=== PATIENT | female | born 1930 | race Caucasian/White ===

== ENCOUNTER 2018-07-22 21:40 | Observation (INO) | payer MEDICARE, OTHER ==
[2018-07-22 21:46] VITALS: TEMP 97.9
[2018-07-22] MEDS ORDERED: Iodixanol 320 MG/ML 100 ML BOTTLE IV ONE (22:11)
[2018-07-22] MEDS ORDERED: Sodium Chloride 0.9% 1,000 ML IV SCH (22:15)
[2018-07-22 22:19] LABS: BASO # 0.1 K/uL (0.0-0.2); BASO % 0.5 % (0.0-2.0); EOS # 0.4 K/uL (0.0-0.7); EOS % 4.1 % (0.0-4.0); HEMOGLOBIN 12.9 g/dL (11.0-16.0); LYMPH % 20.6 % (20.0-40.0); MEAN CORPUSCULAR HGB CONC 31.2 g/dL (33.0-37.0); MONO # 1.1 K/uL (0.0-0.8); MONO % 11.1 % (0.0-10.0); NEUT # 6.1 K/uL (1.8-7.0); NEUT % 63.7 % (50.0-75.0); NRBC % 0.2 % (0.0-2.0); RBC 6.45 Mil/uL (3.80-5.20); RED CELL DISTRIBUTION WIDTH 17.6 % (11.5-14.5); WHITE BLOOD COUNT 9.6 K/uL (4.8-10.8)
[2018-07-22 22:20] LABS: MEAN CELL VOLUME 63.9 fL (81.0-99.0)
[2018-07-22 22:27] LABS: INR 0.9; PROTHROMBIN TIME 10.3 SECONDS (9.7-12.2)
[2018-07-22 22:31] LABS: ALB/GLOB RATIO 1.2 (1.0-2.1); ALBUMIN 4.7 g/dL (3.5-5.0); ALT/SGPT 40 U/L (9-52); AST/SGOT 44 U/L (14-36); BLOOD UREA NITROGEN 19 mg/dL (7-17); CALCIUM 9.7 mg/dl (8.6-10.4); GFR NON-AFRICAN AMERICAN > 60; HDL CHOLESTEROL 49 mg/dL (30-70)
[2018-07-22 22:42] LABS: LDL CHOLESTEROL 65 mg/dL (0-129)
[2018-07-22] MEDS ORDERED: Morphine 4 MG/ML VIAL ONE (23:12)
--- NOTE | 2018-07-22 23:17 | C.PDOC ---
History Of Present Illness 87 year old female is brought to the ED by family for evaluation of sudden onset change in mental status. Patient's family reports she was vomiting, stuporous. Patient's family denies fever, chills, recent illness, fall, trauma, neck pain, headache. <Fede Jimenes - Last Filed: 07/23/18 01:54> <Irene Banks - Last Filed: 07/23/18 01:24> History Per: Family History/Exam Limitations: clinical condition Onset/Duration Of Symptoms: Hrs Current Symptoms Are (Timing): Still Present Associated Symptoms Preceding Syncopal Episode: No Predromal Symptoms (Sudden Onset) Seizure Or Post-ictal Symptoms: None Fall Associated With With Symptoms: No Recent travel outside of the [place]: No Additional History Per: Patient - Symptoms Of CVA Associated Symptoms: New Confusion Recent Aspirin Use: Unknown Current Coumadin Use?: Unknown Recent Head Trauma: No <Fede Jimenes - Last Filed: 07/23/18 01:54> Time Seen by Provider: 07/22/18 22:01 Chief Complaint (Nursing): GI Problem Past Medical History Vital Signs: Last Vital Signs Temp 97.9 F 07/22/18 21:41 Pulse 67 07/22/18 23:54 Resp 16 07/22/18 23:54 BP 229/96 H 07/22/18 23:54 Pulse Ox 98 07/22/18 23:54 <Irene Banks - Last Filed: 07/23/18 01:24> Reviewed: Historical Data, Nursing Documentation, Vital Signs Vital Signs: Last Vital Signs Temp 97.9 F 07/22/18 21:41 Pulse 76 07/22/18 21:41 Resp 20 07/22/18 21:41 BP 212/100 H 07/22/18 21:41 Pulse Ox 100 07/22/18 21:41 - Medical History PMH: Diabetes, HTN, Hypercholesterolemia, Hypothyroidism Surgical History: No Surg Hx Family History: States: Unknown Family Hx - Social History Hx Tobacco Use: No Hx Alcohol Use: No Hx Substance Use: No - Immunization History Hx Tetanus Toxoid Vaccination: No Hx Influenza Vaccination: Yes Hx Pneumococcal Vaccination: Yes <Fede Jimenes - Last Filed: 07/23/18 01:54> Review Of Systems Review Of Systems: ROS cannot be obtained secondary to pt's inabilty to answer questions. <Fede Jimenes E - Last Filed: 07/23/18 01:54> Physical Exam - Physical Exam Appears: Other (obtunded, unresponsive, obese) Skin: Normal Color, Warm, Dry Head: Atraumatic, Normacephalic Eye(s): bilateral: Normal Inspection Neck: Normal ROM, Supple Chest: Symmetrical Cardiovascular: Rhythm Regular Respiratory: No Rales, No Rhonchi, No Wheezing, Other (gideon arce breathing) Gastrointestinal/Abdominal: Soft, No Tenderness, No Guarding, No Rebound Neurological/Psych: Other (unresponsive ) Gait: Unable To Assess <Fede Jimenes E - Last Filed: 07/23/18 01:54> ED Course And Treatment - Laboratory Results Result Diagrams: 07/22/18 22:14 07/22/18 22:14 Lab Results: PT 10.3 SECONDS (9.7-12.2) 07/22/18 22:14 INR 0.9 07/22/18 22:14 APTT 33 SECONDS (21-34) 07/22/18 22:14 Troponin I 0.0210 ng/mL (0.00-0.120) 07/22/18 22:14 Total Bilirubin 0.8 mg/dL (0.2-1.3) 07/22/18 22:14 AST 44 U/L (14-36) H 07/22/18 22:14 ALT 40 U/L (9-52) 07/22/18 22:14 Alkaline Phosphatase 199 U/L (38-126) H 07/22/18 22:14 Total Protein 8.6 g/dL (6.3-8.3) H 07/22/18 22:14 Albumin 4.7 g/dL (3.5-5.0) 07/22/18 22:14 Globulin 3.9 gm/dL (2.2-3.9) 07/22/18 22:14 Albumin/Globulin Ratio 1.2 (1.0-2.1) 07/22/18 22:14 - Physician Consult Information Outcome Of Conversation: 1:13 am called to pronounce the pt., Sha had a massive bleed and was dnr/dni. Pt asystolic. no spontaneous respiration or heart beat. Family at bedside. Pt pronounced at 1:13 AM <Irene Banks - Last Filed: 07/23/18 01:24> - Laboratory Results Result Diagrams: 07/22/18 22:14 07/22/18 22:14 Lab Results: PT 10.3 SECONDS (9.7-12.2) 07/22/18 22:14 INR 0.9 07/22/18 22:14 APTT 33 SECONDS (21-34) 07/22/18 22:14 Troponin I 0.0210 ng/mL (0.00-0.120) 07/22/18 22:14 Total Bilirubin 0.8 mg/dL (0.2-1.3) 07/22/18 22:14 AST 44 U/L (14-36) H 07/22/18 22:14 ALT 40 U/L (9-52) 07/22/18 22:14 Alkaline Phosphatase 199 U/L (38-126) H 07/22/18 22:14 Total Protein 8.6 g/dL (6.3-8.3) H 07/22/18 22:14 Albumin 4.7 g/dL (3.5-5.0) 07/22/18 22:14 Globulin 3.9 gm/dL (2.2-3.9) 07/22/18 22:14 Albumin/Globulin Ratio 1.2 (1.0-2.1) 07/22/18 22:14 Lab Interpretation: Abnormal (+ microcytic anemia, + elev glu) ECG: Interpreted By Ar ECG Rhythm: Sinus Rhythm ECG Interpretation: Normal Rate From EC O2 Sat by Pulse Oximetry: 100 (ON RA) Pulse Ox Interpretation: Normal - Radiology CXR: Interpreted by Ar CXR Interpretation: Yes: Heart Size, Other (+CHF) - CT Scan/US CT head Other Rad Studies (CT/US): Read By Radiologist, Radiology Report Reviewed CT/US Interpretation: CLINICAL HISTORY: AMS. . TECHNIQUE: Multiple axial, coronal, sagittal CT images were obtained through brain without IV contrast material. . COMMENTS: . There is diffuse extensive bilateral subarachnoid hemorrhage with the largest concentration of blood around the [place] of [place], perimesencephalic cistern and bilateral sylvian fissures. There is blood present in the 4th ventricle. This is consistent with rupture of a large aneurysm. There is lacunar infarct noted involving right caudate. There is generalized parenchymal atrophy. 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 . The study shows normal configuration of sella turcica. . There are no intra or extra-axial collections. There is no midline shift. No hydrocephalus is present. . The ventricles are symmetrical. No abnormal calcifications are present. . . IMPRESSION: 1. Diffuse extensive bilateral subarachnoid hemorrhage consistent with rupture of a large aneurysm. 2. Right caudate lacunar infarct. 3. Generalized parenchymal atrophy. 4. 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 Discussed with Dr Jimenes 10-50pm EST. . Electronically signed on Jul 22, 2018 11:09:18 PM EST by: Norman Figueredo M.D., BUNNY Certified By ABR & CBCCT. Fellowship Trained MRI and CT Specialist CTA head and neck Other Rad Studies (CT/US): Read By Radiologist, Radiology Report Reviewed CT/US Interpretation: EXAM: CTA Head and Neck with Intravenous Contrast. CLINICAL HISTORY: AMS. TECHNIQUE: Axial CTA images of the head and neck performed with intravenous contrast. MIP reconstructed images were created and reviewed. CONTRAST: With; VISIPAQUE 320 was injected intravenously without incident. COMPARISON: None provided. FINDINGS: VASCULATURE: NECK: COMMON CAROTID ARTERIES. Note is made of heavy calcific plaque at right and left bifurcation with [id number] grade stenosis estimated at 30-50%.. No dissection or occlusion. EXTERNAL CAROTID ARTERIES. Patent. NECK: INTERNAL CAROTID ARTERIES. 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 The posterior component measures approximately 7 x 6 mm. The anterior component is partially calcified and measures approximately 8 x 7 mm. VERTEBRAL ARTERIES. No significant canal stenosis. No dissection or occlusion. HEAD: ANTERIOR CEREBRAL ARTERIES. No significant stenosis. No occlusion. No aneurysm. MIDDLE CEREBRAL ARTERIES. No significant stenosis. No occlusion. No aneurysm. PO STERIOR CEREBRAL ARTERIES. No significant stenosis. No occlusion. No aneurysm. BASILAR ARTERY. No significant stenosis. No occlusion. No aneurysm. OTHER: SOFT TISSUES. No acute finding. BONES. No acute osseous abnormality. MISCELLANEOUS: The heart is enlarged. There are pulmonary venous congestive changes present as well as diffuse bilateral pulmonary edema. IMPRESSION: 1. 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 2. Note is made of heavy calcific plaque at right and left bifurcation with [id number] grade stenosis (30-50%). 3. The heart is enlarged. There are pulmonary venous congestive changes present as well as diffuse bilateral pulmonary edema. Discussed with Dr Jimenes 10-50pm EST. . Electronically signed on Jul 22, 2018 11:12:57 PM EST by: Norman Figueredo M.D., BUNNY Certified By ABR & CBCCT. Fellowship Trained MRI and CT Specialist Reevaluation Time: 23:15 Reassessment Condition: Unchanged (altered breathing, still unresponsive, pupilary exam baseline) - Physician Consult Information Outcome Of Conversation: 2230: d/w Dr. Lozano- NSGY- catastrophic bleed, recomends transfer to [place] or Hospice. 2250: d/w Dr Butts- Medicine Software Engineer Sales- ok to admit- comfort Care, DNR <Fede Jimenes E - Last Filed: 07/23/18 01:54> Critical Care Time - Critical Care Note Total Time (in mins): 90 Documented critical care: time excludes all time spent performing seperately billable procedures. <Fede Jimenes E - Last Filed: 07/23/18 01:54> NIHSS Stroke Scale 2 - Date/Time Evaluation Performed Date Performed: 07/22/18 Time Performed: 21:50 When Was NIHSS Performed: Code Stroke - How Severe is the Stroke Level of Consciousness: 3=Unresponsive LOC to Questions: 2=Neither correct LOC to commands: 2=Neither correct Best Gaze: 0=Normal Visual: 0=No visual loss Facial: 0=Normal Motor Arm - Left: 4=No movement Motor Arm - Right: 4=No movement Motor Leg - Left: 4=No movement Motor Leg - Right: 4=No movement Limb Ataxia: 0=Absent Sensory: 0=Normal Best Language: 3=Mute Dysarthia: 2=Severe, near unintelligible or worse Extinction & Inattention (Neglect): 0=Normal, no object Score: 28 <Fede Jimenes E - Last Filed: 07/23/18 01:54> rTPA Inclusion/Exclusion - Refusal of Treatment Patient Refused Treatment: No - Inclusion Criteria for Altepase Patient is 18 years or Older: Yes The Clinical Diagnosis of Ischemic Stroke That is Causing a Potentially Disabling Neurological Deficit: Yes Time of Onset is Well Established to be Less Than 270 Minute Before Treatment Would Begin: No Risk/Benefit Discussed With Patient/Family Member Present: No - Exclusion Criteria for Altepase Uncontrolled Hypertension at Time of Treatment (Systolic BP above 185 or Diastolic BP above 110 mmHg): No Active Internal Bleeding: Yes Known Bleeding Diathesis Including but Not Limited to: Platelets Below 100,000/mm,PTT Above 40 sec After Heparin Use, Current Use of Oral Anitcoagulant With INR Greater Than 1.7 or PT Greater Than 15 secs: No Evidence of an Intracranial Hemorrhage: No Evidence of Major Acute Infarct With Signs Greater Than 1/3 MCA Territory: No Suspicion of Subarachnoid Hemorrhage on Pretreatment Evaluation Even if CT Head Negative For Hemorrhage: Yes - Warning to TPA With Conditions Condition: Age Greater Than 75 years Additional Condition (For 3-4.5 Hour Window): Age Greater Than 80 <Fede Jimenes - Last Filed: 07/23/18 01:54> Medical Decision Making Medical Decision Making: Code stroke called at 21:15 Discussed with family at bedside who respected patient's wished to be DNR/DNI. Comfort measures instituted. catastrophic SAB approx 2000 hrs altered mental status c/w same d/w Family, Comfort Care/DNR <Fede Jimenes - Last Filed: 07/23/18 01:54> Disposition <Irene Banks - Last Filed: 07/23/18 01:24> Doctor Will See Patient In The: Hospital Counseled Patient/Family Regarding: Studies Performed, Diagnosis - Disposition Disposition Time: 23:18 - POA Core Measure Indicators: Code Stroke <Fede Jimenes - Last Filed: 07/23/18 01:54> - Disposition Disposition: HOSPITALIZED Condition: CRITICAL - Clinical Impression Clinical Impression: Subarachnoid hemorrhage - Scribe Statement The provider has reviewed the documentation as recorded by the Scribe Perry Salcido All medical record entries made by the Scribe were at my direction and personally dictated by me. I have reviewed the chart and agree that the record accurately reflects my personal performance of the history, physical exam, medical decision making, and the department course for this patient. I have also personally directed, reviewed, and agree with the discharge instructions and disposition. <Fede Jimenes - Last Filed: 07/23/18 01:54>
--- NOTE | 2018-07-22 23:43 | CP.PCM.HP ---
History of Present Illness - History of Present Illness History of Present Illness: 87 year old female is brought to the ED by family for evaluation of sudden onset change in mental status. Patient's family reports she was vomiting, stuporous. Patient's family denies fever, chills, recent illness, fall, trauma, neck pain, headache CT scan of the head shows subarachnoid hemorrhage probably secondary to ruptured aneurysm which was confirmed with CT and you chest x-ray showed pulmonary edema with cardiomegaly Currently patient is obtunded and unresponsive Present on Admission - Present on Admission Any Indicators Present on Admission: No Review of Systems - Review of Systems Systems not reviewed;Unavailable: Acuity of Condition Past Patient History - Infectious Disease Hx of Infectious Diseases: None - Past Social History Smoking Status: Never Smoked - CARDIAC Hx Hypercholesterolemia: Yes Hx Hypertension: Yes - ENDOCRINE/METABOLIC Hx Hypothyroidism: Yes - PSYCHIATRIC Hx Substance Use: No - SURGICAL HISTORY Hx Surgeries: Yes Hx Orthopedic Surgery: Yes - ANESTHESIA Hx Anesthesia: Yes Hx Anesthesia Reactions: No Meds Allergies/Adverse Reactions: Allergies Allergy/AdvReac Type Severity Reaction Status Date / Time No Known Allergies Allergy Verified 07/22/18 21:46 Physical Exam - Constitutional Appears: Other (patient unresponsive) - Head Exam Head Exam: NORMOCEPHALIC - Eye Exam Eye Exam: EOMI, Normal appearance - Neck Exam Neck exam: Positive for: Full Rom - Respiratory Exam Respiratory Exam: Rhonchi - Cardiovascular Exam Cardiovascular Exam: +S2, +S4 - GI/Abdominal Exam GI & Abdominal Exam: Soft. absent: Tenderness - Neurological Exam Neurological exam: Altered Results - Vital Signs Recent Vital Signs: Last Vital Signs Temp 97.9 F 07/22/18 21:41 Pulse 78 07/22/18 23:00 Resp 12 07/22/18 23:00 BP 212/100 H 07/22/18 21:41 Pulse Ox 100 07/22/18 23:22 - Labs Result Diagrams: 07/22/18 22:14 07/22/18 22:14 Labs: Laboratory Results - last 24 hr 07/22/18 07/22/18 07/22/18 22:14 22:14 22:14 WBC 9.6 RBC 6.45 H Hgb 12.9 Hct 41.3 MCV 63.9 L D MCH 20.0 L MCHC 31.2 L RDW 17.6 H Plt Count 243 MPV 9.0 Neut % (Auto) 63.7 Lymph % (Auto) 20.6 [place] % (Auto) 11.1 H Eos % (Auto) 4.1 H Baso % (Auto) 0.5 Neut # (Auto) 6.1 Lymph # (Auto) 2.0 [place] # (Auto) 1.1 H Eos # (Auto) 0.4 Baso # (Auto) 0.1 Differential Comment PT 10.3 INR 0.9 APTT 33 Sodium 134 Potassium 4.0 Chloride 98 Carbon Dioxide 23 Anion Gap 17 BUN 19 H Creatinine 0.7 Est GFR ( Amer) > 60 Est GFR (Non-Af Amer) > 60 Random Glucose 294 H D Hemoglobin A1c Calcium 9.7 Total Bilirubin 0.8 AST 44 H ALT 40 Alkaline Phosphatase 199 H Troponin I 0.0210 Total Protein 8.6 H Albumin 4.7 Globulin 3.9 Albumin/Globulin Ratio 1.2 Triglycerides 100 Cholesterol 135 LDL Cholesterol Direct 65 HDL Cholesterol 49 Blood Type Antibody Screen 07/22/18 07/22/18 22:14 22:34 WBC RBC Hgb Hct MCV MCH MCHC RDW Plt Count MPV Neut % (Auto) Lymph % (Auto) [place] % (Auto) Eos % (Auto) Baso % (Auto) Neut # (Auto) Lymph # (Auto) [place] # (Auto) Eos # (Auto) Baso # (Auto) Differential Comment PT INR APTT Sodium Potassium Chloride Carbon Dioxide Anion Gap BUN Creatinine Est GFR ( Amer) Est GFR (Non-Af Amer) Random Glucose Hemoglobin A1c 10.8 H Calcium Total Bilirubin AST ALT Alkaline Phosphatase Troponin I Total Protein Albumin Globulin Albumin/Globulin Ratio Triglycerides Cholesterol LDL Cholesterol Direct HDL Cholesterol Blood Type O POSITIVE Antibody Screen Negative Assessment & Plan (1) Comatose Status: Acute Comment: neurosurgical and neurology evaluation (2) HTN (hypertension) Status: Acute (3) Subarachnoid hemorrhage Status: Acute
[2018-07-22 23:55] VITALS: RESP 16
[2018-07-22] MEDS ORDERED: Nitroglycerin 2% Ointment Foilpak UD TOP STA (23:55)
[2018-07-23] MEDS ORDERED: Nitroglycerin 2% Ointment Foilpak UD TOP ONE
[2018-07-23] MEDS ORDERED: Dextrose 5%/0.45% NS 1,000 ML IV SCH (00:45)
[2018-07-23 01:33] VITALS: BP 240/98; PULSE 66
[2018-07-23 01:50] VITALS: O2SAT 100
[2018-07-23] MEDS ORDERED: Nitroglycerin 2% Ointment Foilpak UD TOP SCH (05:00)
--- NOTE | 2018-07-23 10:43 | CT ---
Date of service: 07/22/2018 PROCEDURE: CT HEAD WITHOUT CONTRAST. HISTORY: Code Stroke COMPARISON: None available. TECHNIQUE: Axial computed tomography images were obtained through the head/brain without intravenous contrast. Radiation dose: Total exam DLP = 1119.87 mGy-cm. This CT exam was performed using one or more of the following dose reduction techniques: Automated exposure control, adjustment of the mA and/or kV according to patient size, and/or use of iterative reconstruction technique. FINDINGS: There is diffuse ext, extensive subarachnoid hemorrhage throughout the supra and infratentorial extra-axial spaces with only occasional sparing of a few sulci at the bilateral frontal, occipital and parietal lobes particularly near the vertex. Surrounding hemorrhage is most prominent at the bilateral sylvian fissures, anteroinferior interhemispheric fissure, suprasellar cistern and cerebellopontine angles. In fact, the medulla is displaced posteriorly and slightly flattened in appears slightly edematous. Further, right side of the flor appears somewhat flattened as well. No definitive pontine edema appreciable grossly however. No intraventricular or definite intraparenchymal hemorrhage is appreciated. The ventricular system appears slightly prominent which may be on the basis of atrophy although hydrocephalus is not excluded. Generalized atrophy is felt to be present based on the pattern of wide sulci throughout the brain in general. Periventricular white matter lucency likely reflects chronic microangiopathy favored over transependymal edema. Right caudate head chronic lacune identified VENTRICLES: As above. CALVARIUM: Unremarkable. PARANASAL SINUSES: Unremarkable as visualized. No significant inflammatory changes. MASTOID AIR CELLS: Unremarkable as visualized. No inflammatory changes. OTHER FINDINGS: None. IMPRESSION: Prominent, diffuse subarachnoid hemorrhage is appreciated only sparing a few sulci at the vertex and occasional occipital sulci. 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 There is questionable developing hydrocephalus. Consider possible aneurysm rupture. Age-related neuro degenerative findings as discussed above. Chronic lacune right caudate head. [facility], 07/22/2018, 11:[address] Womack with written down and read back verification 07/22/2018 10:[address] Figueredo from [facility].
--- NOTE | 2018-07-23 12:06 | CP.PCM.DIS ---
Provider - Provider Date of Admission: 07/22/18 23:02 Attending physician: Gia Butts MD Consults: 07/22/18 22:01 Stroke Team Consult Stat Comment: ED 12 Consulting Provider: Neurohospitalist Consulting Physician: NEUROHOSP Neurohospitalist for Consult: Kenney Breen Neurohospitalist for Consult: Amilcar Andersen Reason for Consult: acute change of MS Time Spent in preparation of Discharge (in minutes): 30 Diagnosis - Discharge Diagnosis (1) Comatose Status: Acute (2) HTN (hypertension) Status: Acute (3) Subarachnoid hemorrhage Status: Acute Hospital Course - Lab Results Lab Results: Most Recent Lab Values WBC 9.6 K/uL (4.8-10.8) 07/22/18 22:14 RBC 6.45 Mil/uL (3.80-5.20) H 07/22/18 22:14 Hgb 12.9 g/dL (11.0-16.0) 07/22/18 22:14 Hct 41.3 % (34.0-47.0) 07/22/18 22:14 MCV 63.9 fL (81.0-99.0) L D 07/22/18 22:14 MCH 20.0 pg (27.0-31.0) L 07/22/18 22:14 MCHC 31.2 g/dL (33.0-37.0) L 07/22/18 22:14 RDW 17.6 % (11.5-14.5) H 07/22/18 22:14 Plt Count 243 K/uL (130-400) 07/22/18 22:14 MPV 9.0 fL (7.2-11.7) 07/22/18 22:14 Neut % (Auto) 63.7 % (50.0-75.0) 07/22/18 22:14 Lymph % (Auto) 20.6 % (20.0-40.0) 07/22/18 22:14 [place] % (Auto) 11.1 % (0.0-10.0) H 07/22/18 22:14 Eos % (Auto) 4.1 % (0.0-4.0) H 07/22/18 22:14 Baso % (Auto) 0.5 % (0.0-2.0) 07/22/18 22:14 Neut # (Auto) 6.1 K/uL (1.8-7.0) 07/22/18 22:14 Lymph # (Auto) 2.0 K/uL (1.0-4.3) 07/22/18 22:14 [place] # (Auto) 1.1 K/uL (0.0-0.8) H 07/22/18 22:14 Eos # (Auto) 0.4 K/uL (0.0-0.7) 07/22/18 22:14 Baso # (Auto) 0.1 K/uL (0.0-0.2) 07/22/18 22:14 Differential Comment 07/22/18 22:14 PT 10.3 SECONDS (9.7-12.2) 07/22/18 22:14 INR 0.9 07/22/18 22:14 APTT 33 SECONDS (21-34) 07/22/18 22:14 Sodium 134 mmol/L (132-148) 07/22/18 22:14 Potassium 4.0 mmol/L (3.6-5.2) 07/22/18 22:14 Chloride 98 mmol/L (98-107) 07/22/18 22:14 Carbon Dioxide 23 mmol/L (22-30) 07/22/18 22:14 Anion Gap 17 (10-20) 07/22/18 22:14 BUN 19 mg/dL (7-17) H 07/22/18 22:14 Creatinine 0.7 mg/dL (0.7-1.2) 07/22/18 22:14 Est GFR ( Amer) > 60 07/22/18 22:14 Est GFR (Non-Af Amer) > 60 07/22/18 22:14 POC Glucose (mg/dL) 262 mg/dL (65-110) H 07/22/18 21:39 Random Glucose 294 mg/dL (65-105) H D 07/22/18 22:14 Hemoglobin A1c 10.8 % (4.2-6.5) H 07/22/18 22:14 Calcium 9.7 mg/dl (8.6-10.4) 07/22/18 22:14 Total Bilirubin 0.8 mg/dL (0.2-1.3) 07/22/18 22:14 AST 44 U/L (14-36) H 07/22/18 22:14 ALT 40 U/L (9-52) 07/22/18 22:14 Alkaline Phosphatase 199 U/L (38-126) H 07/22/18 22:14 Troponin I 0.0210 ng/mL (0.00-0.120) 07/22/18 22:14 Total Protein 8.6 g/dL (6.3-8.3) H 07/22/18 22:14 Albumin 4.7 g/dL (3.5-5.0) 07/22/18 22:14 Globulin 3.9 gm/dL (2.2-3.9) 07/22/18 22:14 Albumin/Globulin Ratio 1.2 (1.0-2.1) 07/22/18 22:14 Triglycerides 100 mg/dL (0-149) 07/22/18 22:14 Cholesterol 135 mg/dL (0-199) 07/22/18 22:14 LDL Cholesterol Direct 65 mg/dL (0-129) 07/22/18 22:14 HDL Cholesterol 49 mg/dL (30-70) 07/22/18 22:14 Blood Type O POSITIVE 07/22/18 22:34 Antibody Screen Negative 07/22/18 22:34 - Hospital Course Hospital Course: Patient presented to the emergency room in comatose condition CAT scan of the head showed subarachnoid hemorrhage from ruptured aneurysm. Patient was intubated and after discussing with the family family signed DNR and DNI. Few hours later is patient in the emergency room. Discharge Exam - Head Exam Head Exam: NORMOCEPHALIC Discharge Plan - Follow Up Plan Condition: CRITICAL Disposition: WITH WITHOUT AUTOPSY
--- NOTE | 2018-07-23 12:24 | CT ---
Date of service: 07/22/2018 PROCEDURE: CT Angiography of the Brain. HISTORY: acute change of MS COMPARISON: Correlation is made with preliminary head CT without contrast 07/22/2018. No prior intracranial arterial imaging for comparison. TECHNIQUE: CT angiography of the head and neck was performed following intravenous contrast administration. Coronal and sagittal maximum intensity projection reformatted images were generated. Contrast Dose: Visipaque 320, 100 cc Radiation dose: Total exam DLP = 711.84 mGy-cm. This CT exam was performed using one or more of the following dose reduction techniques: Automated exposure control, adjustment of the mA and/or kV according to patient size, and/or use of iterative reconstruction technique. FINDINGS: INTERNAL CEREBRAL ARTERIES: Bilateral cavernous internal artery atherosclerotic changes are identified partially calcified with a mid to distal right ICA high-grade stenosis or possible occlusion present. Moderate stenosis of the proximal and mid segments of the right ICA is identified. Moderate stenosis of the left ICA at the distal cavernous segment is also suspected. 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 Superior surface is irregular in all 3 reconstructed projections. The right posterior communicating artery is diffusely ectatic with a fusiform aneurysm appreciated at its mid to distal segment measuring 5.6 x 8.0 x 6.5 mm. Multiple distal branches are identified distal to the aneurysm high-grade stenoses proximal and distal to the aneurysm as well. Small vessels questioned enhancing as the PCOM approaches the right [employer] question of possible small arteriovascular malformation. Alternately, an additional 2 mm PCOM aneurysm is not excluded. Finally, a 3rd definite aneurysm is identified at the distal left cavernous ICA extending medially, abutting the anterior cortex of the sella, measuring 3.6 x 4.4 x 4.2 mm. ANTERIOR CEREBRAL ARTERIES: The right A1 anterior cerebral artery segment is not identified and may be hypoplastic or congenitally absent. Left A1 NASH is widely patent without stenosis. Intra communicating artery appears widely patent as well. Bilateral A2 branches are unremarkable. MIDDLE CEREBRAL ARTERIES: M2 MCA segments are widely patent with left M1 segment unremarkable. Aneurysm noted above, high-grade stenosis may be present at the origin of the right MCA versus supraclinoid right ICA. POSTERIOR CIRCULATION: Basilar Artery: Basilar artery appears patent there is bifurcations the potentially minimally spasmodic or hypoplastic distally. Distal Vertebral Arteries: There is a moderate stenosis of the distal left vertebral artery with the right vertebral artery patent and unremarkable. Potential hypoplasia versus spasm at distal left vertebral artery. Posterior Cerebral Arteries: Unremarkable. Posterior Inferior Cerebellar Arteries: Unremarkable. NECK CTA: Common Carotid arteries: The bilateral proximal common carotid arteries are moderately ectatic, right greater than left with plaque development identified in the bilateral carotid bulbs and proximal internal carotid arteries. No significant common carotid artery stenosis identified. No evidence to suggest common carotid artery dissection. Internal Carotid arteries: Mild proximal stenoses are identified in the bilateral internal carotid arteries due to atherosclerotic plaque, largely calcified, the vessels remaining widely patent nevertheless. No significant stenosis appreciated no definite pattern to suggest dissection. External Carotid arteries: Appear patent bilaterally. Vertebral arteries: The origins of the bilateral vertebral arteries are quite small a factor difficult to follow directly into the cervical spine foramina potentially reflecting congenital anomaly or even vasculitis pattern. No significant stenosis identified in the remainder of the right vertebral artery to its junction with the basilar artery. The left vertebral artery exhibits moderate to severe stenoses at the C1 arch level. Additional lesser stenosis seen at the intracranial segment as discussed above. ANEURYSM/ VASCULAR MALFORMATIONS: As discussed above. OTHER FINDINGS: None. IMPRESSION: 1. An irregular greene aneurysm is identified at the distal supraclinoid right ICA versus proximal right MCA artery measuring 7.9 mm greatest dimension as per above. 2. The right posterior communicating artery is irregular in proximal and distal stenoses with potential multiple tiny distal branches proximal to junction with the right posterior cerebral artery. The proximal to mid segment is an 8.0 mm fusiform aneurysm. It is difficult to exclude small AVM involving its distal branches versus multifocal high-grade stenoses. 3. 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 4. Moderate proximal to mid and high-grade distal cavernous right ICA stenosis. Moderate proximal left cavernous ICA stenosis. 5. High-grade proximal bilateral vertebral artery stenoses proximally, otherwise widely patent at the right with moderate to severe C1 level stenoses at the left. Congenital anomaly is the differential diagnosis. 6. Irregular right posterior communicating artery pattern and proximal bilateral vertebral arteries, possibly vasculitis is difficult to exclude.
--- NOTE | 2018-07-23 13:10 | RAD ---
Date of service: 07/22/2018 HISTORY: Code Stroke COMPARISON: 01/31/2012 FINDINGS: LUNGS: Interval increased pulmonary venous congestion. Interval patchy right basal and interval less dense more amorphous suspect left mid lung zone airspace opacity. Possible infiltrate and/or right basal nodule 1 consideration. Left mid lung zone asymmetrical pulmonary edema and/or pleural parenchymal pathology seen on end. PLEURA: No significant pleural effusion identified, no pneumothorax apparent. CARDIOVASCULAR: There is presence of aortic atherosclerotic calcification on x-ray. Mild cardiomegaly-similar mild moderate pulmonary venous congestion suspect. OSSEOUS STRUCTURES: Cervical thoracic spondylosis. Bilateral shoulder arthrosis VISUALIZED UPPER ABDOMEN: Normal. OTHER FINDINGS: None. IMPRESSION: Interval increased pulmonary venous congestion. Possible bilateral areas of pulmonary edema left more likely than right. Right basal appearance possible nodular infiltrate and/or neoplastic nodule; here follow-up is advised. Other findings as above.
--- NOTE | 2018-07-24 05:48 | CARD ---
APPROVED REPORT Date of service: 07/22/2018 EKG Measurement Heart [id number] <Conclusion> Normal sinus rhythm Possible Left atrial enlargement Left ventricular hypertrophy T wave abnormality, consider lateral ischemia Abnormal ECG
== END 2018-07-23 01:13 ==
LOC: C.ER 21:40 → C.9E 23:02
PROVIDERS: ADMIT Internal Medicine Cardiovascular Disease; ATTEND Internal Medicine Cardiovascular Disease
DX: R40.20 Unspecified coma (principal); I60.9 Nontraumatic subarachnoid hemorrhage, unspecified; I11.9 Hypertensive heart disease without heart failure; E11.9 Type 2 diabetes mellitus without complications; E03.9 Hypothyroidism, unspecified; E78.00 Pure hypercholesterolemia, unspecified; Z51.5 Encounter for palliative care; Z66 Do not resuscitate
CPT/HCPCS: 70450; 70496; 70498; 71045; 80053; 80061; 82948; 83036; 84484; 85025; 85610; 85730; 86850; 86900; 93005; 96374; 96375; G0378; J1940; J1953; J2270; J7030; Q9967